=== PATIENT | female | born 1935 | race Caucasian/White ===

== ENCOUNTER 2017-02-18 12:43 | Inpatient (IN) | payer OTHER ==
[~2017-02-18] VITALS: Ht 154.9 cm; Wt 64.5 kg
[~2017-02-18 12:43] MED LIST: ASPIR-LOW81 M1 PO; B COMPLEX1200 MCG/1 SL; Bactrim,Septra DS 80 PO; Biotin PO; CALCIUM WITH V1 EAC1 PO; COLACE100 MG PO; CYMBALTA60 MG PO; Cymbalta PO; DIOVAN160 MG PO; DIOVAN40 MG PO; Ecotrin PO; FISH OIL 1,2001 EAC4 PO; KLONOPIN1 M2 PO; KlonoPIN PO; LIPITOR10 MG PO; LITE COAT ASPI325 M1 PO; PRAVACHOL40 MG PO; Pepcid PO; Provigil PO; RITALIN10 MG PO; ROPINIROLE HC0.25 MG PO; TYLENOL REGULA325 MG PO; VICODIN 5-3001 EACH PO; VITAMIN D1000 INTUN PO
[2017-02-18 14:02] LABS: BASOPHIL COUNT 0.1 K/uL (0-0.1); EOSINOPHIL (%) 4.7 % (0-5); EOSINOPHIL COUNT 0.3 K/uL (0-0.3); HEMATOCRIT 37.7 % (36.0-46.0); IMMATURE GRANULOCYTE (%) 0.3 % (0.0-0.7); INSTRUMENT ABS NEUTROPHIL CT 3.9 K/uL; LYMPHOCYTE COUNT 1.4 K/uL (1.0-2.8); MCH 29.8 PG (29.0-34.0); MCHC 33.2 G/DL (30.0-36.0); MCV 89.8 FL (83-99); MEAN PLAT.VOLUME 10.8 uM^3 (9.5-12.4); MONOCYTE (%) 9.3 % (3-12); MONOCYTE COUNT 0.6 K/uL (0-0.8); NEUTROPHIL COUNT 3.9 K/uL (1.8-6.4); PLATELET COUNT 263 K/uL (156-360); RBC DIS.WIDTH-CV 12.5 % (11.8-14.6); RBC DIS.WIDTH-SD 41.3 % (39-53); WHITE BLOOD COUNT 6.2 K/uL (4.1-10.2)
[2017-02-18 14:07] LABS: PROTHROMBIN TIME 11.3 SEC (10.2-12.9)
[2017-02-18 14:14] LABS: CHLORIDE 107 mEq/L (99-109); POTASSIUM 3.6 mEq/L (3.7-5.4); SODIUM 140 mEq/L (136-147)
[2017-02-18 14:16] LABS: GLUCOSE 102 mg/dL (70-99)
[2017-02-18 14:18] LABS: ANION GAP 13 MEQ/L (2-14)
[2017-02-18 14:20] LABS: GFR ESTIMATE (CALCULATED) > 59 mL/min/
[2017-02-18 14:21] LABS: UREA NITROGEN (BUN) 16 mg/dL (9-23)
[2017-02-18 14:23] LABS: TROP-I INTERPRETATION NEGATIVE; TROPONIN-I < 0.01 ng/mL (0.0-0.30)
[2017-02-18 15:23] LABS: ADD MIUA? NO; BILIRUBIN NEGATIVE; BLOOD NEGATIVE; COLOR YELLOW ((YELLOW)); GLUCOSE (STRIP) NEGATIVE; KETONES 5; LEUKOCYTES NEGATIVE; NITRITE NEGATIVE; PROTEIN (STRIP) NEGATIVE; SPECIFIC GRAVITY 1.008 (1.000-1.030); UCUL ADDED? NO; UROBILINOGEN 0.2 MG/DL (0.2-1.0)
[2017-02-18] MEDS ORDERED: DOXEPIN HCL10 MG PO (18:01)
[2017-02-18] MEDS ORDERED: GABAPENTIN100 MG PO (18:02)
[2017-02-18] MEDS ORDERED: PAXIL30 MG PO (18:02)
[2017-02-18] MEDS ORDERED: DITROPAN XL5 MG PO (18:02)
[2017-02-18] MEDS ORDERED: XANAX XR0.5 MG PO (18:03)
[2017-02-18] MEDS ORDERED: OMEPRAZOLE20 M2 PO (18:03)
[2017-02-18] MEDS ORDERED: PRAVACHOL40 MG PO (18:03)
[2017-02-18] MEDS ORDERED: VITAMIN D32000 UNI1 PO (18:03)
[2017-02-18] MEDS ORDERED: MULTI VITAMIN1 EACH PO (18:04)
[2017-02-18] MEDS ORDERED: SINEQUAN25 MG PO (18:04)
[2017-02-18] MEDS ORDERED: ARICEPT10 MG PO (18:04)
[2017-02-18] MEDS ORDERED: ALPRAZOLAM ER0.5 MG PO (18:10)
[2017-02-18 19:53] VITALS: BP 140/61
[2017-02-18 23:31] VITALS: BP 115/57
[2017-02-19 03:40] VITALS: BP 104/52
[2017-02-19 06:30] LABS: MCH 30.7 PG (29.0-34.0); MCHC 32.9 G/DL (30.0-36.0); MCV 93.2 FL (83-99); MEAN PLAT.VOLUME 10.9 uM^3 (9.5-12.4); PLATELET COUNT 237 K/uL (156-360); RBC DIS.WIDTH-CV 12.6 % (11.8-14.6); RBC DIS.WIDTH-SD 43.4 % (39-53); RED BLOOD COUNT 3.65 M/uL (3.80-5.20); WHITE BLOOD COUNT 6.3 K/uL (4.1-10.2)
[2017-02-19 06:55] LABS: ALKALINE PHOSPHATASE 63 IU/L (3-129); ANION GAP 8 MEQ/L (2-14); CHLORIDE 105 MEQ/L (99-109); GFR ESTIMATE (CALCULATED) 56 mL/min/; GLUCOSE 101 mg/dL (70-99); HDL CHOLESTEROL 74 MG/DL (Desirable>=50); LDL CHOLESTEROL 42 mg/dL (Desirable<100); NON-HDL CHOLESTEROL 60 mg/dL (Desirable<160); POTASSIUM 4.3 MEQ/L (3.7-5.4); SAMPLE HEMOLYSIS CHECK 0; SAMPLE ICTERIC CHECK 0; SAMPLE LIPEMIA CHECK 0; SODIUM 138 MEQ/L (136-147); TOTAL BILIRUBIN 0.7 MG/DL (0.0-1.0); TOTAL CHOLESTEROL 134 mg/dL (Desirable<200); TRIGLYCERIDES 88 MG/DL (Normal: <150); UREA NITROGEN (BUN) 13 mg/dL (9-23)
[2017-02-19 07:34] VITALS: BP 121/65
[2017-02-19 12:01] VITALS: BP 127/58
[2017-02-19 16:19] VITALS: BP 113/62
[2017-02-19 19:45] VITALS: BP 112/56
[2017-02-20 00:28] VITALS: BP 114/59
[2017-02-20 07:48] VITALS: BP 137/70
[2017-02-20] MEDS ORDERED: PLAVIX75 MG PO (12:51)
== END 2017-02-20 13:45 | disposition home or self-care (01) | DRG 948 ==
LOC: EME 12:43 → EDOF 17:43 → 5SOUTH 17:43 → ENRESERV 17:44 → 5SOUTH 19:35
PROVIDERS: Emergency Medicine; Internal Medicine
DX: R41.82 Altered mental status, unspecified (principal); R47.1 Dysarthria and anarthria; I10 Essential (primary) hypertension; R47.81 Slurred speech; J44.9 Chronic obstructive pulmonary disease, unspecified; F41.9 Anxiety disorder, unspecified; F03.90 Unspecified dementia, unspecified severity, without behavioral disturbance, psychotic disturbance, mood disturbance, and anxiety; G93.89 Other specified disorders of brain; F32.9 Major depressive disorder, single episode, unspecified; K21.9 Gastro-esophageal reflux disease without esophagitis; Z66 Do not resuscitate; Z88.0 Allergy status to penicillin; Z86.73 Personal history of transient ischemic attack (TIA), and cerebral infarction without residual deficits; Z91.09 Other allergy status, other than to drugs and biological substances; Z79.82 Long term (current) use of aspirin; Z87.891 Personal history of nicotine dependence; Z80.8 Family history of malignant neoplasm of other organs or systems
CPT/HCPCS: 70450; 70496; 70498; 70551; 71010; 80048; 80053; 80061; 81003; 84484; 85025; 85027; 85610; 85730; 93005; 99281; 99285; J1644; J2060; J2405; J7030

== ENCOUNTER 2017-04-12 16:54 | Emergency (ER) | payer OTHER ==
[~2017-04-12] VITALS: Ht 160 cm; Wt 65.4 kg
[~2017-04-12 16:54] MED LIST changes: +ALPRAZOLAM ER0.5 MG PO; +ARICEPT10 MG PO; +DITROPAN XL5 MG PO; +DOXEPIN HCL10 MG PO; +GABAPENTIN100 MG PO; +MULTI VITAMIN1 EACH PO; +OMEPRAZOLE20 M2 PO; +PAXIL30 MG PO; +PLAVIX75 MG PO; +SINEQUAN25 MG PO; +VITAMIN D32000 UNI1 PO; +XANAX XR0.5 MG PO
[2017-04-12 17:03] VITALS: BP 147/62
[2017-04-12 18:19] LABS: BASOPHIL COUNT 0.1 K/uL (0-0.1); EOSINOPHIL (%) 2.3 % (0-5); EOSINOPHIL COUNT 0.3 K/uL (0-0.3); HEMATOCRIT 37.2 % (36.0-46.0); IMMATURE GRANULOCYTE (%) 0.4 % (0.0-0.7); IMMATURE GRANULOCYTE COUNT 0.1 K/uL; INSTRUMENT ABS NEUTROPHIL CT 9.3 K/uL; MCH 30.1 PG (29.0-34.0); MCHC 33.1 G/DL (30.0-36.0); MCV 91.2 FL (83-99); MEAN PLAT.VOLUME 10.6 uM^3 (9.5-12.4); MONOCYTE (%) 6.7 % (3-12); MONOCYTE COUNT 0.8 K/uL (0-0.8); NEUTROPHIL (%) 81.7 % (45-76); NEUTROPHIL COUNT 9.3 K/uL (1.8-6.4); PLATELET COUNT 272 K/uL (156-360); RBC DIS.WIDTH-CV 12.7 % (11.8-14.6); RBC DIS.WIDTH-SD 42.2 % (39-53); RED BLOOD COUNT 4.08 M/uL (3.80-5.20); WHITE BLOOD COUNT 11.4 K/uL (4.1-10.2)
[2017-04-12 18:27] LABS: CHLORIDE 104 mEq/L (99-109); POTASSIUM 4.3 mEq/L (3.7-5.4); SODIUM 137 mEq/L (136-147)
[2017-04-12 18:29] LABS: GLUCOSE 96 mg/dL (70-99)
[2017-04-12 18:30] LABS: ANION GAP 10 MEQ/L (2-14)
[2017-04-12 18:33] LABS: GFR ESTIMATE (CALCULATED) > 59 mL/min/
[2017-04-12 18:34] LABS: UREA NITROGEN (BUN) 19 mg/dL (9-23)
[2017-04-12 18:35] LABS: ADD MIUA? YES; BILIRUBIN NEGATIVE; BLOOD NEGATIVE; COLOR YELLOW ((YELLOW)); GLUCOSE (STRIP) NEGATIVE; KETONES NEGATIVE; LEUKOCYTES TRACE; NITRITE NEGATIVE; PROTEIN (STRIP) NEGATIVE; SPECIFIC GRAVITY 1.011 (1.000-1.030); UROBILINOGEN 0.2 MG/DL (0.2-1.0)
[2017-04-12 18:39] LABS: TROP-I INTERPRETATION NEGATIVE; TROPONIN-I < 0.01 ng/mL (0.0-0.30)
[2017-04-12 18:53] LABS: BACTERIA RARE /HPF; CASTS NONE SEEN /LPF; CRYSTALS NONE SEEN; EPITHELIAL CELLS RARE /HPF; MUCUS NONE SEEN /LPF; RED BLOOD CELLS 0-5 /HPF (0-5); UCUL ADDED? NO; WHITE BLOOD CELLS 0-5 /HPF (0-5)
== END 2017-04-12 20:41 | disposition left against medical advice (07) ==
LOC: EME 16:54
PROVIDERS: Emergency Medicine
DX: R55 Syncope and collapse (principal); R42 Dizziness and giddiness; R53.1 Weakness; I10 Essential (primary) hypertension; Z86.73 Personal history of transient ischemic attack (TIA), and cerebral infarction without residual deficits; Z79.82 Long term (current) use of aspirin; Z87.891 Personal history of nicotine dependence; Z53.20 Procedure and treatment not carried out because of patient's decision for unspecified reasons
CPT/HCPCS: 70450; 71010; 80048; 81003; 84484; 85025; 93005; 99281; 99284

== ENCOUNTER 2017-12-30 11:24 | Emergency (ER) | payer OTHER, BC ==
[~2017-12-30] VITALS: Ht 165.1 cm; Wt 62.7 kg
[2017-12-30 15:27] VITALS: BP 126/58
== END 2017-12-30 15:28 ==
LOC: EME 11:24
DX: S09.90XA Unspecified injury of head, initial encounter (principal); S02.2XXA Fracture of nasal bones, initial encounter for closed fracture; S00.83XA Contusion of other part of head, initial encounter; W01.198A Fall on same level from slipping, tripping and stumbling with subsequent striking against other object, initial encounter; Z79.02 Long term (current) use of antithrombotics/antiplatelets; Z79.82 Long term (current) use of aspirin; Z86.73 Personal history of transient ischemic attack (TIA), and cerebral infarction without residual deficits; Z88.2 Allergy status to sulfonamides; Z87.891 Personal history of nicotine dependence
CPT/HCPCS: 70450; 70486; 99281; 99284